=== PATIENT | female | born 1955 | race Caucasian/White ===

== ENCOUNTER 2018-06-18 17:27 | Emergency (ER) | END 2018-06-18 19:35 | disposition home or self-care (01) ==

== ENCOUNTER 2018-10-07 17:45 | Emergency (ER) | END 2018-10-07 20:00 | disposition left against medical advice (07) ==

== ENCOUNTER 2019-06-26 12:40 | Observation (INO) | payer BC ==
[~2019-06-26] VITALS: Ht 172.7 cm; Wt 64.3 kg
[~2019-06-26 12:40] MED LIST: HYDR-3024 PO; HYDR-3980 PO; HYDR-4011 PO
[2019-06-26] MEDS ORDERED: ASPIRIN 81 MG TAB PO ONE (15:00)
[2019-06-26] MEDS ORDERED: ONDANSETRON 4 MG INJ IV PRN ×2 (16:30)
[2019-06-26] MEDS ORDERED: NACL 0.9% 3 ML SYG IV SCH (16:30)
[2019-06-26] MEDS ORDERED: ACETAMINOPHEN 325 MG TAB PO PRN ×2 (16:30)
[2019-06-26] MEDS ORDERED: NITROGLYCERIN (SL) 0.4 MG TAB SL PRN (16:30)
[2019-06-26] MEDS ORDERED: HYDROCODONE/APAP (5/325) TAB PO PRN (16:30)
[2019-06-26] MEDS ORDERED: morphine 2 MG INJ IV PRN (16:30)
[2019-06-26 17:47] VITALS: Ht 172.7 cm; Wt 64.3 kg
[2019-06-26 17:54] VITALS: BP 166/97; PULSE 64; RESP 16
[2019-06-26] MEDS ORDERED: LIDOCAINE/MYLANTA 40 ML BTL PO ONE (18:00)
[2019-06-26] MEDS: PANTOPRAZOLE (EC) 40 MG TAB PO SCH (18:04)
[2019-06-26 19:40] VITALS: BP 132/88; PULSE 63; RESP 16
[2019-06-26] MEDS ORDERED: ATORVASTATIN 80 MG TAB PO SCH (21:00)
[2019-06-26 23:33] VITALS: BP 97/67; PULSE 62; RESP 16
[2019-06-27 03:46] VITALS: BP 113/76; PULSE 59; RESP 16
[2019-06-27] MEDS: PANTOPRAZOLE (EC) 40 MG TAB PO SCH (05:58)
[2019-06-27 07:36] VITALS: BP 117/82; PULSE 63; RESP 17
[2019-06-27] MEDS ORDERED: ASPIRIN 81 MG TAB PO SCH (09:00)
== END 2019-06-27 10:30 | disposition left against medical advice (07) ==
LOC: E/R 12:40 → 6WM 16:15 → INTOOBSV 16:15 → SUATTDRO 16:18
PROVIDERS: ADMIT Internal Medicine; ATTEND Internal Medicine
DX: R07.9 Chest pain, unspecified (principal); G62.9 Polyneuropathy, unspecified
CPT/HCPCS: 36415; 71045; 80048; 80053; 80061; 83036; 83735; 84443; 84484; 85025; 93005; 99217; 99285; G0378